=== PATIENT | male | born 1985 | race Caucasian/White ===

== ENCOUNTER 2021-01-30 08:17 | Inpatient (IN) | payer OTHER ==
[2021-01-30 11:47] VITALS: BMI 19.5
[2021-01-30] MEDS ORDERED: cloNIDine HCL 0.1 MG TABLET PO PRN (11:59)
[2021-01-30] MEDS ORDERED: clonazePAM 0.5 MG ODT TABLETS SL PRN (11:59)
[2021-01-30] MEDS ORDERED: ACETAMINOPHEN 325 MG TABLET (FP) PO PRN ×2 (11:59)
[2021-01-30] MEDS ORDERED: MAGNESIUM HYDROX 2400MG/30ML ORAL SUSPENSION 30 ML CUP PO PRN (11:59)
[2021-01-30] MEDS ORDERED: MAG HYDROX/AL HYDROX/SIMETH 30 ML UNIT-DOSE CUP PO PRN (11:59)
[2021-01-30] MEDS ORDERED: LORazepam 1 MG TABLET PO PRN (11:59)
[2021-01-30] MEDS ORDERED: IBUPROFEN 400 MG TABLET (FP) PO PRN (11:59)
[2021-01-30] MEDS ORDERED: MENTHOL/PHENOL 1 EACH UD MM PRN (11:59)
[2021-01-30] MEDS ORDERED: BISMUTH SUBSALICYLATE 524 MG/30 ML PO PRN (11:59)
[2021-01-30] MEDS ORDERED: MAGNESIUM CITRATE 300 ML BOTTLE PO PRN (11:59)
[2021-01-30] MEDS ORDERED: ONDANSETRON *ODT* 4 MG TABLET SL PRN (11:59)
[2021-01-30] MEDS: PRENATAL VITAMINS W/ FOLIC ACID TABLET (FP) PO SCH (13:25)
[2021-01-30] MEDS: LORazepam 2 MG TABLET PO SCH ×3 (13:25→23:00)
[2021-01-30] MEDS ORDERED: methaDONE HCL 10 MG TABLET (FOR DETOX USE ONLY) PO ONE (13:45)
[2021-01-30] MEDS: hydrOXYzine PAMOATE 25 MG CAPSULE (FP) PO SCH ×2 (14:13→18:10)
[2021-01-30 15:06] LABS: HEMATOCRIT 41.7 % (35.4-49); MCH 29.1 pg (25.7-33.7); MCHC 33.5 g/dl (32.0-35.9); MEAN CELL VOLUME 86.6 fl (80-96); MEAN PLT VOLUME 9.2 fl (7.5-11.1); PLATELET COUNT 229 10^3/uL (134-434); RBC 4.81 M/mm3 (4.00-5.60); RDW 14.1 % (11.9-15.9); WHITE BLOOD COUNT 7.8 K/mm3 (4.0-10.0)
[2021-01-30 15:08] LABS: ALBUMIN 3.6 g/dl (3.4-5.0); BLOOD UREA NITROGEN 8.2 mg/dL (7-18); CALCIUM 9.2 mg/dL (8.5-10.1)
[2021-01-30 15:12] LABS: CREATININE 0.7 mg/dL (0.55-1.3)
[2021-01-30 15:13] LABS: BILIRUBIN,TOTAL 0.5 mg/dL (0.2-1); TOT PROT 6.6 g/dl (6.4-8.2)
[2021-01-31] MEDS: hydrOXYzine PAMOATE 25 MG CAPSULE (FP) PO SCH ×6 (00:04→23:50)
[2021-01-31] MEDS: THIAMINE HCL 100 MG TABLET (FP) PO SCH ×2 (00:04→22:12)
[2021-01-31] MEDS: MELATONIN 5 MG TABLETS PO SCH ×2 (00:04→22:11)
[2021-01-31] MEDS: LORazepam 2 MG TABLET PO SCH ×4 (06:00→22:15)
[2021-01-31] MEDS ORDERED: methaDONE HCL 10 MG TABLET (FOR DETOX USE ONLY) ONE (09:33)
[2021-01-31] MEDS: PRENATAL VITAMINS W/ FOLIC ACID TABLET (FP) PO SCH (10:39)
[2021-02-01] MEDS: LORazepam 1 MG TABLET PO SCH ×4 (06:03→22:19)
[2021-02-01] MEDS: hydrOXYzine PAMOATE 25 MG CAPSULE (FP) PO SCH ×2 (06:03→10:01)
[2021-02-01] MEDS: NICOTINE 10 MG CARTRIDGE (INHALER) IH PRN (10:00)
[2021-02-01] MEDS ORDERED: methaDONE HCL 10 MG TABLET (FOR DETOX USE ONLY) PO ONE (10:00)
[2021-02-01] MEDS: METHOCARBAMOL 500 MG TABLET PO PRN ×2 (10:01→22:21)
[2021-02-01] MEDS: PRENATAL VITAMINS W/ FOLIC ACID TABLET (FP) PO SCH (10:02)
[2021-02-01] MEDS: hydrOXYzine PAMOATE 25 MG CAPSULE (FP) PO PRN (17:36)
[2021-02-01] MEDS: THIAMINE HCL 100 MG TABLET (FP) PO SCH (22:19)
[2021-02-01] MEDS: MELATONIN 5 MG TABLETS PO SCH (22:19)
[2021-02-02] MEDS: LORazepam 0.5 MG TABLET PO PRN ×2 (00:40→14:35)
[2021-02-02] MEDS: hydrOXYzine PAMOATE 25 MG CAPSULE (FP) PO PRN ×5 (00:41→22:35)
[2021-02-02] MEDS: METHOCARBAMOL 500 MG TABLET PO PRN ×2 (06:05→11:10)
[2021-02-02] MEDS: LORazepam 0.5 MG TABLET PO SCH ×4 (06:05→22:35)
[2021-02-02] MEDS ORDERED: methaDONE HCL 10 MG TABLET (FOR DETOX USE ONLY) ONE (09:13)
[2021-02-02] MEDS: PRENATAL VITAMINS W/ FOLIC ACID TABLET (FP) PO SCH (10:22)
[2021-02-02] MEDS: NICOTINE 10 MG CARTRIDGE (INHALER) IH PRN (14:37)
[2021-02-02] MEDS: MELATONIN 5 MG TABLETS PO SCH (22:33)
[2021-02-02] MEDS: THIAMINE HCL 100 MG TABLET (FP) PO SCH (22:33)
[2021-02-03] MEDS ORDERED: LORazepam 0.5 MG TABLET PO ONE (05:00)
[2021-02-03] MEDS: METHOCARBAMOL 500 MG TABLET PO PRN ×2 (06:05→14:39)
[2021-02-03] MEDS: hydrOXYzine PAMOATE 25 MG CAPSULE (FP) PO PRN ×3 (06:05→19:05)
[2021-02-03] MEDS ORDERED: methaDONE HCL 10 MG TABLET (FOR DETOX USE ONLY) PO ONE (10:00)
[2021-02-03] MEDS: PRENATAL VITAMINS W/ FOLIC ACID TABLET (FP) PO SCH (10:32)
[2021-02-03] MEDS: VITAMINS A AND D TOPICAL OINTMENT 60 GM TUBE TP SCH ×2 (15:09→22:14)
[2021-02-03] MEDS: THIAMINE HCL 100 MG TABLET (FP) PO SCH (22:15)
[2021-02-03] MEDS: MELATONIN 5 MG TABLETS PO SCH (22:15)
[2021-02-04] MEDS: METHOCARBAMOL 500 MG TABLET PO PRN (01:02)
[2021-02-04] MEDS: hydrOXYzine PAMOATE 25 MG CAPSULE (FP) PO PRN (01:02)
[2021-02-04] MEDS: PRENATAL VITAMINS W/ FOLIC ACID TABLET (FP) PO SCH (10:22)
[2021-02-04] MEDS: VITAMINS A AND D TOPICAL OINTMENT 60 GM TUBE TP SCH ×2 (10:22→21:32)
[2021-02-04 10:50] LABS: BLOOD UREA NITROGEN 7.4 mg/dL (7-18)
[2021-02-04 10:51] LABS: CALCIUM 9.3 mg/dL (8.5-10.1)
[2021-02-04 10:53] LABS: CREATININE 0.7 mg/dL (0.55-1.3)
[2021-02-04] MEDS: THIAMINE HCL 100 MG TABLET (FP) PO SCH (21:01)
[2021-02-04] MEDS: MELATONIN 5 MG TABLETS PO SCH (21:01)
[2021-02-04] MEDS ORDERED: PT OWN MED DRAWER 7, Y5N ONE (21:32)
[2021-02-05] MEDS: PRENATAL VITAMINS W/ FOLIC ACID TABLET (FP) PO SCH (10:55)
[2021-02-05] MEDS: VITAMINS A AND D TOPICAL OINTMENT 60 GM TUBE TP SCH ×2 (11:27→22:55)
[2021-02-05] MEDS: MELATONIN 5 MG TABLETS PO SCH (21:18)
[2021-02-05] MEDS: THIAMINE HCL 100 MG TABLET (FP) PO SCH (21:18)
[2021-02-05] MEDS ORDERED: PT OWN MED DRAWER 7, Y5N ONE (21:19)
[2021-02-06] MEDS ORDERED: hydrOXYzine PAMOATE 25 MG CAPSULE (FP) PO ONE (02:17)
[2021-02-06] MEDS: PRENATAL VITAMINS W/ FOLIC ACID TABLET (FP) PO SCH (09:58)
[2021-02-06] MEDS: hydrOXYzine PAMOATE 25 MG CAPSULE (FP) PO PRN ×2 (09:59→21:09)
[2021-02-06] MEDS: VITAMINS A AND D TOPICAL OINTMENT 60 GM TUBE TP SCH ×2 (10:55→21:10)
[2021-02-06] MEDS: MELATONIN 5 MG TABLETS PO SCH (21:09)
[2021-02-06] MEDS: THIAMINE HCL 100 MG TABLET (FP) PO SCH (21:09)
[2021-02-07] MEDS: hydrOXYzine PAMOATE 25 MG CAPSULE (FP) PO PRN (01:11)
[2021-02-07 06:40] VITALS: BP 135/76; PULSE 94; TEMP 99
== END 2021-02-07 09:20 | disposition left against medical advice (07) | DRG 894 ==
LOC: YASAS 08:17 → Y3N 13:26 → Y3W 02-04 14:57
PROVIDERS: ADMIT Allergy & Immunology; ATTEND Allergy & Immunology
PROC: HZ2ZZZZ Detoxification Services for Substance Abuse Treatment (ICD-10-PCS; principal; 2021-01-30)
PROC: HZ42ZZZ Group Counseling for Substance Abuse Treatment, Cognitive-Behavioral (ICD-10-PCS; 2021-02-04)
DX: F11.23 Opioid dependence with withdrawal (principal); F10.230 Alcohol dependence with withdrawal, uncomplicated; F17.210 Nicotine dependence, cigarettes, uncomplicated; F90.9 Attention-deficit hyperactivity disorder, unspecified type; R03.0 Elevated blood-pressure reading, without diagnosis of hypertension; R73.9 Hyperglycemia, unspecified; R74.01 Elevation of levels of liver transaminase levels; R48.0 Dyslexia and alexia; Z62.810 Personal history of physical and sexual abuse in childhood; Z56.0 Unemployment, unspecified; Z59.0 Homelessness
CPT/HCPCS: 36415; 80048; 80053; 83036; 84075; 85027; 86780; 93005; 93010; C9803; J0735; Q0162; U0003; U0005